=== PATIENT | male | born 1930 | race Caucasian/White ===

== ENCOUNTER 2019-01-21 07:49 | Observation (INO) | payer MEDICARE ==
[~2019-01-21] VITALS: Ht 170.2 cm; Wt 68.5 kg
[~2019-01-21 07:49] MED LIST: ASPI-515 PO; ATOR20TA PO; CARV12.52 PO; CARV6.2512 PO; DOXY100T PO; FINA5TAB4 PO; FURO-93 PO; GABA-826 PO; LEVO75TA5 PO; LISI5TAB7 PO; NAPR220C2 PO; PRAM0.25 PO; SODI1TAB PO; SPIR25TA PO; SPIR50TA4 PO; TAMS-11 PO; TEMA30CA PO
--- NOTE | 2019-01-21 08:05 | NUR ---
TERENCE MENDEZ, PER REPORT PT WITH FALL ONE MONTH AGO, BEEN HAVING RL BACK PAIN EVER SINCE. PT STATES THE PAIN GOT WORSE LAST NIGHT SO HE CALLED THE AMBULANCE. PT DIFFICULT TO OBTAIN INFO TO WHY HE IS HERE TODAY. PT STATES PAIN IS IN R LEG, THEN C/O L ANKLE PAIN AND SAYS HE IS HERE FOR HIS WOUND THAT HE GOT HERE AT THE HOSPITAL. ERPROVIDER IN TO EVAL PT, PT TO BP, CONT PULSE OX
[2019-01-21 08:41] LABS: BASOPHILS # (AUTO) 0.04 x10^3/uL (0-0.1); BASOPHILS % (AUTO) 1 % (0-1); EOSINOPHILS # (AUTO) 0.14 x10^3/uL (0-0.4); EOSINOPHILS % (AUTO) 2 % (1-7); LYMPHOCYTES # (AUTO) 0.99 x10^3/uL (1-3.4); LYMPHOCYTES % (AUTO) 14 % (22-44); MD NO; MEAN CORPUSCULAR HEMOGLOBIN 32.4 pg (27.5-34.5); MEAN CORPUSCULAR HGB CONC 32.3 g/dL (33.2-36.2); MEAN CORPUSCULAR VOLUME 100.2 fL (81-97); MEAN PLATELET VOLUME 6.2 fL (7.4-10.4); MONOCYTES # (AUTO) 0.44 x10^3/uL (0.2-0.8); MONOCYTES % (AUTO) 6 % (2-9); NEUTROPHILS # (AUTO) 5.44 x10^3/uL (1.8-6.8); NEUTROPHILS % (AUTO) 77 % (42-75); PLATELET COUNT 222 x10^3/uL (130-400); RED BLOOD COUNT 3.38 x10^6/uL (4.38-5.82); RED CELL DISTRIBUTION WIDTH 15.2 % (9.4-14.8)
[2019-01-21 08:44] LABS: HCT (SEDRATE) 33.9 % (39.2-51.8)
--- NOTE | 2019-01-21 08:47 | NUR ---
PT TO IMAGING
[2019-01-21 08:50] LABS: INTERNATIONAL NORMALIZED RATIO 1.18 (0.93-1.1); PROTHROMBIN TIME 12.3 Seconds (9.6-11.5)
--- NOTE | 2019-01-21 08:54 | NUR ---
MRI - per [email or web address], pacemaker was implanted on 12/24/18. Due to FDA regulations, unable to scan patient for 6 weeks after pacemaker implanted.
[2019-01-21 08:56] LABS: ALBUMIN 2.8 g/dL (3.4-5.0); ANION GAP 9 mmol/L (5-15); CALCIUM 8.1 mg/dL (8.5-10.1); CHLORIDE 102 mmol/L (98-107)
[2019-01-21 09:03] LABS: ALANINE AMINOTRANSFERASE 26 U/L (12-78); ALKALINE PHOSPHATASE 84 U/L (45-117); BILIRUBIN,TOTAL 0.9 mg/dL (0.2-1.0); CREATININE 0.98 mg/dL (0.7-1.3); TOTAL PROTEIN 5.6 g/dL (6.4-8.2)
[2019-01-21 09:12] LABS: TROPONIN I 0.177 ng/mL (0.000-0.045)
--- NOTE | 2019-01-21 09:14 | NUR ---
LAB CALLED TO REPORT ELEVATED TROP, PROVIDER UPDATED
--- NOTE | 2019-01-21 09:30 | NUR ---
PT BACK FROM IMAGING, UNABLE TO COMPLETE MRI PER TECH D/T PPM PLACEMENT <6WKS AGO. AWARE. EKG COMPLETED
--- NOTE | 2019-01-21 09:40 | NUR ---
PIV INITIATED, PT PLACED ON CARD MONITOR. UA COLLECTED AND WALKED TO LAB
--- NOTE | 2019-01-21 10:22 | NUR ---
PT TO CT
[2019-01-21 10:29] LABS: CULTURE INDICATED? YES; MICROSCOPIC INDICATED
--- NOTE | 2019-01-21 10:43 | NUR ---
BACK FROM IMAGING, PT ASKING FOR HIS DAUGHTER HE THOUGHT SHE WAS WITH HIM, REORIENTED PT, DAUGHTER HAS NOT BEEN PRESENT PT WAS BIB [facility] WITH NO FAMILY PRESENT
[2019-01-21] MEDS ORDERED: OMNIPAQUE 350 MG/ML, 150 ML BOTTLE ONE (10:53)
[2019-01-21] MEDS ORDERED: ONDANSETRON 2MG/ML, 2ML ONE (11:13)
[2019-01-21] MEDS ORDERED: MORPHINE SULFATE 4 MG/ML, 1ML ONE (11:13)
--- NOTE | 2019-01-21 11:18 | NUR ---
PT MEDICATED PER MAR FOR PAIN, PT VSS, NAD NOTED
[2019-01-21] MEDS ORDERED: morphine SULFATE 10 MG/ML, 1ML IVPush ONE (11:30)
[2019-01-21] MEDS ORDERED: ONDANSETRON 2MG/ML, 2ML IVPush ONE (11:30)
[2019-01-21] MEDS ORDERED: CEFTRIAXONE PMX 1GM/50ML 50 ML IV ONE (11:30)
--- NOTE | 2019-01-21 12:28 | NUR ---
PT RESTING ON GURNEY AT THIS TIME, NAD NOTED, DAUGHTER AT BEDSIDE. PT STATES HE HAS MINIMAL PAIN RELIEF FROM PAIN MEDICATION ADMINISTRATION, WILL NOTIFY
[2019-01-21] MEDS ORDERED: CEFTRIAXONE PMX 1GM/50ML 50 ML ONE (13:41)
--- NOTE | 2019-01-21 13:46 | NUR ---
REPORT GIVEN TO RECIEVING RN, PT GIVEN MED PER MAR, ADMITTING MD IN TO EVAL PT THEN PT TO TRANSFER TO [facility]
[2019-01-21 14:47] VITALS: BP 112/47
[2019-01-21] MEDS ORDERED: LABETALOL 5MG/ML, 20ML IVPush PRN (15:00)
[2019-01-21] MEDS ORDERED: ONDANSETRON ODT 4 MG PO PRN (15:00)
[2019-01-21] MEDS ORDERED: ACETAMINOPHEN 325 MG TABLET PO PRN (15:00)
[2019-01-21] MEDS ORDERED: TEMAZEPAM 15 MG CAPSULE PO PRN (15:00)
[2019-01-21] MEDS ORDERED: ENALAPRILAT 1.25 MG/ML, 2ML IVPush PRN (15:00)
[2019-01-21] MEDS ORDERED: HYDROcodone/APAP 5/325 TABLET PO PRN (15:00)
[2019-01-21] MEDS ORDERED: ONDANSETRON 2MG/ML, 2ML IVPush PRN (15:00)
[2019-01-21] MEDS: PRAMIPEXOLE 0.25MG TABLET PO SCH ×2 (16:47→19:56)
[2019-01-21 17:33] LABS: TROPONIN I 0.166 ng/mL (0.000-0.045)
[2019-01-21] MEDS: CARVEDILOL 6.25 MG TABLET PO SCH (18:05)
[2019-01-21] MEDS: FUROSEMIDE 20 MG/2 ML IV SCH (18:06)
[2019-01-21] MEDS: ENOXAPARIN 40 MG/0.4 ML SQ SCH (18:06)
[2019-01-21 18:35] VITALS: BP 105/54
[2019-01-21] MEDS: ATORVASTATIN 20 MG TABLET PO SCH (19:56)
[2019-01-21] MEDS: GABAPENTIN 100 MG CAPSULE PO SCH (19:56)
[2019-01-21 21:07] LABS: TROPONIN I 0.174 ng/mL (0.000-0.045)
[2019-01-22 01:10] VITALS: BP 94/52
[2019-01-22 04:51] LABS: BASOPHILS # (AUTO) 0.09 x10^3/uL (0-0.1); BASOPHILS % (AUTO) 1 % (0-1); EOSINOPHILS % (AUTO) 3 % (1-7); LYMPHOCYTES % (AUTO) 16 % (22-44); MD NO; MEAN CORPUSCULAR HEMOGLOBIN 33.4 pg (27.5-34.5); MEAN CORPUSCULAR HGB CONC 33.2 g/dL (33.2-36.2); MEAN CORPUSCULAR VOLUME 100.5 fL (81-97); MEAN PLATELET VOLUME 7.1 fL (7.4-10.4); MONOCYTES # (AUTO) 0.47 x10^3/uL (0.2-0.8); MONOCYTES % (AUTO) 7 % (2-9); NEUTROPHILS # (AUTO) 5.26 x10^3/uL (1.8-6.8); NEUTROPHILS % (AUTO) 74 % (42-75); PLATELET COUNT 212 x10^3/uL (130-400); RED BLOOD COUNT 3.06 x10^6/uL (4.38-5.82)
[2019-01-22 05:02] LABS: CHLORIDE 102 mmol/L (98-107)
[2019-01-22 05:08] LABS: ALANINE AMINOTRANSFERASE 22 U/L (12-78); ALBUMIN 2.5 g/dL (3.4-5.0); ALKALINE PHOSPHATASE 79 U/L (45-117); ANION GAP 5 mmol/L (5-15); BILIRUBIN,TOTAL 0.7 mg/dL (0.2-1.0); CALCIUM 8.1 mg/dL (8.5-10.1); CREATININE 1.08 mg/dL (0.7-1.3); TOTAL PROTEIN 5.2 g/dL (6.4-8.2)
[2019-01-22 06:27] VITALS: BP 101/65
[2019-01-22] MEDS: CARVEDILOL 6.25 MG TABLET PO SCH ×2 (06:28→17:00)
[2019-01-22] MEDS: LEVOTHYROXINE 75 MCG TABLET PO SCH (06:29)
[2019-01-22 07:48] VITALS: BP 103/54
[2019-01-22] MEDS: FUROSEMIDE 20 MG/2 ML IV SCH ×2 (07:51→16:59)
[2019-01-22] MEDS: TAMSULOSIN 0.4 MG CAP.ER.24H PO SCH (09:01)
[2019-01-22] MEDS: FINASTERIDE 5 MG TABLET PO SCH (09:01)
[2019-01-22] MEDS: ASPIRIN 81 MG TABLET EC PO SCH (09:01)
[2019-01-22] MEDS: PRAMIPEXOLE 0.25MG TABLET PO SCH ×3 (09:01→21:35)
[2019-01-22] MEDS: GABAPENTIN 100 MG CAPSULE PO SCH ×2 (09:02→21:35)
[2019-01-22] MEDS: DOXYCYCLINE 100MG TABLET PO SCH (09:02)
[2019-01-22] MEDS: SPIRONOLACTONE 25 MG TABLET PO SCH (09:02)
[2019-01-22] MEDS ORDERED: TRAZODONE 50MG TABLET PO PRN (11:00)
[2019-01-22] MEDS: METHOCARBAMOL 500 MG TABLET PO PRN (12:05)
[2019-01-22] MEDS: CEFTRIAXONE PMX 1GM/50ML 50 ML IV SCH (13:40)
[2019-01-22 13:46] VITALS: BP 102/57
[2019-01-22] MEDS: ENOXAPARIN 40 MG/0.4 ML SQ SCH (17:02)
[2019-01-22 21:09] VITALS: BP 110/60
[2019-01-22] MEDS: ATORVASTATIN 20 MG TABLET PO SCH (21:35)
[2019-01-23 01:10] VITALS: BP 108/65
[2019-01-23 05:02] LABS: BASOPHILS # (AUTO) 0.04 x10^3/uL (0-0.1); BASOPHILS % (AUTO) 1 % (0-1); EOSINOPHILS # (AUTO) 0.24 x10^3/uL (0-0.4); EOSINOPHILS % (AUTO) 3 % (1-7); LYMPHOCYTES # (AUTO) 1.21 x10^3/uL (1-3.4); LYMPHOCYTES % (AUTO) 17 % (22-44); MD NO; MEAN CORPUSCULAR HEMOGLOBIN 33.3 pg (27.5-34.5); MEAN CORPUSCULAR HGB CONC 33.1 g/dL (33.2-36.2); MEAN CORPUSCULAR VOLUME 100.6 fL (81-97); MEAN PLATELET VOLUME 6.9 fL (7.4-10.4); MONOCYTES # (AUTO) 0.43 x10^3/uL (0.2-0.8); MONOCYTES % (AUTO) 6 % (2-9); NEUTROPHILS # (AUTO) 5.27 x10^3/uL (1.8-6.8); NEUTROPHILS % (AUTO) 73 % (42-75); PLATELET COUNT 235 x10^3/uL (130-400); RED BLOOD COUNT 3.32 x10^6/uL (4.38-5.82); RED CELL DISTRIBUTION WIDTH 15.7 % (9.4-14.8)
[2019-01-23 05:15] LABS: ANION GAP 7 mmol/L (5-15); CALCIUM 7.9 mg/dL (8.5-10.1); CHLORIDE 97 mmol/L (98-107)
[2019-01-23 05:17] LABS: CREATININE 0.99 mg/dL (0.7-1.3)
[2019-01-23] MEDS: LEVOTHYROXINE 75 MCG TABLET PO SCH (06:01)
[2019-01-23] MEDS: CARVEDILOL 6.25 MG TABLET PO SCH ×2 (06:02→17:13)
[2019-01-23 06:55] VITALS: BP 133/73
[2019-01-23] MEDS: DOXYCYCLINE 100MG TABLET PO SCH (09:55)
[2019-01-23] MEDS: PRAMIPEXOLE 0.25MG TABLET PO SCH ×3 (09:55→20:47)
[2019-01-23] MEDS: TAMSULOSIN 0.4 MG CAP.ER.24H PO SCH (09:55)
[2019-01-23] MEDS: GABAPENTIN 100 MG CAPSULE PO SCH ×2 (09:55→20:47)
[2019-01-23] MEDS: SPIRONOLACTONE 25 MG TABLET PO SCH (09:55)
[2019-01-23] MEDS: FUROSEMIDE 20 MG/2 ML IV SCH (09:55)
[2019-01-23] MEDS: ASPIRIN 81 MG TABLET EC PO SCH (09:55)
[2019-01-23] MEDS: FINASTERIDE 5 MG TABLET PO SCH (10:00)
[2019-01-23] MEDS: CEFTRIAXONE PMX 1GM/50ML 50 ML IV SCH (13:50)
[2019-01-23 15:46] VITALS: BP 121/72
[2019-01-23] MEDS: ENOXAPARIN 40 MG/0.4 ML SQ SCH (17:13)
[2019-01-23 20:45] VITALS: BP 135/63
[2019-01-23] MEDS: ATORVASTATIN 20 MG TABLET PO SCH (20:47)
[2019-01-24 03:15] VITALS: BP 133/65
[2019-01-24 05:22] LABS: BASOPHILS # (AUTO) 0.02 x10^3/uL (0-0.1); BASOPHILS % (AUTO) 0 % (0-1); EOSINOPHILS # (AUTO) 0.19 x10^3/uL (0-0.4); EOSINOPHILS % (AUTO) 3 % (1-7); LYMPHOCYTES # (AUTO) 1.08 x10^3/uL (1-3.4); LYMPHOCYTES % (AUTO) 14 % (22-44); MD NO; MEAN CORPUSCULAR HEMOGLOBIN 32.6 pg (27.5-34.5); MEAN CORPUSCULAR HGB CONC 32.9 g/dL (33.2-36.2); MEAN PLATELET VOLUME 6.7 fL (7.4-10.4); MONOCYTES # (AUTO) 0.57 x10^3/uL (0.2-0.8); MONOCYTES % (AUTO) 8 % (2-9); NEUTROPHILS # (AUTO) 5.81 x10^3/uL (1.8-6.8); NEUTROPHILS % (AUTO) 76 % (42-75); PLATELET COUNT 238 x10^3/uL (130-400); RED BLOOD COUNT 3.33 x10^6/uL (4.38-5.82); RED CELL DISTRIBUTION WIDTH 15.3 % (9.4-14.8)
[2019-01-24 05:34] LABS: ANION GAP 6 mmol/L (5-15); CHLORIDE 97 mmol/L (98-107); CREATININE 0.93 mg/dL (0.7-1.3)
[2019-01-24] MEDS: LEVOTHYROXINE 75 MCG TABLET PO SCH (06:18)
[2019-01-24] MEDS: CARVEDILOL 6.25 MG TABLET PO SCH ×2 (06:19→17:15)
[2019-01-24 08:05] VITALS: BP 131/75
[2019-01-24] MEDS: GABAPENTIN 100 MG CAPSULE PO SCH ×2 (08:57→20:25)
[2019-01-24] MEDS: ASPIRIN 81 MG TABLET EC PO SCH (08:57)
[2019-01-24] MEDS: FUROSEMIDE 20 MG/2 ML IV SCH (08:57)
[2019-01-24] MEDS: FINASTERIDE 5 MG TABLET PO SCH (08:57)
[2019-01-24] MEDS: DOXYCYCLINE 100MG TABLET PO SCH (08:57)
[2019-01-24] MEDS: PRAMIPEXOLE 0.25MG TABLET PO SCH ×3 (08:57→20:25)
[2019-01-24] MEDS: SPIRONOLACTONE 25 MG TABLET PO SCH (08:57)
[2019-01-24] MEDS: TAMSULOSIN 0.4 MG CAP.ER.24H PO SCH (08:57)
[2019-01-24 13:40] VITALS: BP 118/67
[2019-01-24] MEDS: CEFTRIAXONE PMX 1GM/50ML 50 ML IV SCH (13:52)
[2019-01-24] MEDS: METHOCARBAMOL 500 MG TABLET PO PRN (13:56)
[2019-01-24] MEDS: ENOXAPARIN 40 MG/0.4 ML SQ SCH (17:15)
[2019-01-24 19:41] VITALS: BP 113/61
[2019-01-24] MEDS: ATORVASTATIN 20 MG TABLET PO SCH (20:25)
[2019-01-25 00:53] VITALS: BP 122/70
[2019-01-25 05:26] LABS: CHLORIDE 93 mmol/L (98-107)
[2019-01-25 05:32] LABS: ANION GAP 6 mmol/L (5-15); CREATININE 0.84 mg/dL (0.7-1.3)
[2019-01-25] MEDS: LEVOTHYROXINE 75 MCG TABLET PO SCH (06:17)
[2019-01-25] MEDS: CARVEDILOL 6.25 MG TABLET PO SCH ×2 (06:17→17:42)
[2019-01-25 07:58] VITALS: BP 133/79
[2019-01-25 08:09] LABS: ANION GAP 7 mmol/L (5-15); CALCIUM 7.9 mg/dL (8.5-10.1); CHLORIDE 92 mmol/L (98-107)
[2019-01-25] MEDS: FUROSEMIDE 20 MG/2 ML IV SCH (09:50)
[2019-01-25] MEDS: ASPIRIN 81 MG TABLET EC PO SCH (09:52)
[2019-01-25] MEDS: PRAMIPEXOLE 0.25MG TABLET PO SCH ×3 (09:52→21:19)
[2019-01-25] MEDS: GABAPENTIN 100 MG CAPSULE PO SCH ×2 (09:52→21:19)
[2019-01-25] MEDS: DOXYCYCLINE 100MG TABLET PO SCH (09:52)
[2019-01-25] MEDS: SPIRONOLACTONE 25 MG TABLET PO SCH (09:52)
[2019-01-25] MEDS: SODIUM CHLORIDE 1 GM TABLET PO SCH ×3 (09:52→21:19)
[2019-01-25] MEDS: TAMSULOSIN 0.4 MG CAP.ER.24H PO SCH (09:52)
[2019-01-25] MEDS: FINASTERIDE 5 MG TABLET PO SCH (10:03)
[2019-01-25] MEDS ORDERED: BISACODYL 10 MG SUPP PR PRN (12:30)
[2019-01-25] MEDS ORDERED: DOCUSATE 50 MG/5 ML, 10ML UDC PO PRN (12:30)
[2019-01-25] MEDS ORDERED: POLYETHYLENE GLYCOL 17 GM PACKET PO PRN (12:30)
[2019-01-25] MEDS: CEFTRIAXONE PMX 1GM/50ML 50 ML IV SCH (12:59)
[2019-01-25] MEDS ORDERED: DOCUSATE 100 MG CAPSULE PO PRN (13:30)
[2019-01-25 14:05] VITALS: BP 93/57
[2019-01-25] MEDS ORDERED: FLU VACC QS2019-20 36MOS UP/PF 0.5 ML IM-VACC ONE (16:00)
[2019-01-25] MEDS: ENOXAPARIN 40 MG/0.4 ML SQ SCH (16:41)
[2019-01-25 16:43] VITALS: BP 110/65
[2019-01-25 19:06] VITALS: BP 105/65
[2019-01-25] MEDS: ATORVASTATIN 20 MG TABLET PO SCH (21:19)
[2019-01-26 00:54] VITALS: BP 113/62
[2019-01-26] MEDS: SODIUM CHLORIDE 1 GM TABLET PO SCH ×2 (05:18→10:06)
[2019-01-26] MEDS: LEVOTHYROXINE 75 MCG TABLET PO SCH (05:18)
[2019-01-26] MEDS: CARVEDILOL 6.25 MG TABLET PO SCH (05:19)
[2019-01-26 07:09] VITALS: BP 106/57
[2019-01-26] MEDS ORDERED: LISINOPRIL 5 MG TABLET PO SCH (09:00)
[2019-01-26 09:37] LABS: ANION GAP 8 mmol/L (5-15); CALCIUM 8.3 mg/dL (8.5-10.1); CHLORIDE 92 mmol/L (98-107); CREATININE 1.05 mg/dL (0.7-1.3)
[2019-01-26] MEDS: FINASTERIDE 5 MG TABLET PO SCH (10:06)
[2019-01-26] MEDS: SPIRONOLACTONE 25 MG TABLET PO SCH (10:06)
[2019-01-26] MEDS: ASPIRIN 81 MG TABLET EC PO SCH (10:06)
[2019-01-26] MEDS: GABAPENTIN 100 MG CAPSULE PO SCH (10:06)
[2019-01-26] MEDS: TAMSULOSIN 0.4 MG CAP.ER.24H PO SCH (10:06)
[2019-01-26] MEDS: PRAMIPEXOLE 0.25MG TABLET PO SCH (10:06)
[2019-01-26] MEDS: DOXYCYCLINE 100MG TABLET PO SCH (10:06)
[2019-01-26] MEDS ORDERED: TRAM50TA2 PO (12:41)
[2019-01-26] MEDS ORDERED: ACET325T26 PO (12:41)
[2019-01-26] MEDS ORDERED: DOCU-131 PO (12:41)
[2019-01-26] MEDS ORDERED: ONDA4TAB13 PO (12:41)
[2019-01-26] MEDS ORDERED: CEFT1VIA13 IA (12:41)
[2019-01-26] MEDS ORDERED: METH500T7 PO (12:41)
[2019-01-26] MEDS ORDERED: POLY17PO5 PO (12:41)
[2019-01-26 13:05] VITALS: BP 113/63
[2019-01-26] MEDS: CEFTRIAXONE PMX 1GM/50ML 50 ML IV SCH (13:05)
== END 2019-01-26 14:06 ==
LOC: ED 08:27 → INTOOBSV 12:08 → EDIP 12:08 → 5SO 14:21
PROVIDERS: ADMIT Internal Medicine; ATTEND Internal Medicine
DX: R53.1 Weakness (principal); E22.2 Syndrome of inappropriate secretion of antidiuretic hormone; I50.43 Acute on chronic combined systolic (congestive) and diastolic (congestive) heart failure; E43 Unspecified severe protein-calorie malnutrition; N39.0 Urinary tract infection, site not specified; I11.0 Hypertensive heart disease with heart failure; L89.629 Pressure ulcer of left heel, unspecified stage; D75.89 Other specified diseases of blood and blood-forming organs; E03.9 Hypothyroidism, unspecified; E78.5 Hyperlipidemia, unspecified; G62.9 Polyneuropathy, unspecified; I25.10 Atherosclerotic heart disease of native coronary artery without angina pectoris; I25.2 Old myocardial infarction; I25.5 Ischemic cardiomyopathy; I48.91 Unspecified atrial fibrillation; M16.11 Unilateral primary osteoarthritis, right hip; G89.29 Other chronic pain; M51.36 Other intervertebral disc degeneration, lumbar region; R32 Unspecified urinary incontinence; R62.7 Adult failure to thrive; R19.7 Diarrhea, unspecified; R15.9 Full incontinence of feces; Z66 Do not resuscitate; Z87.891 Personal history of nicotine dependence; Z95.0 Presence of cardiac pacemaker; Z79.82 Long term (current) use of aspirin; Z79.899 Other long term (current) drug therapy; Z23 Encounter for immunization
CPT/HCPCS: 36415; 71045; 72100; 72132; 73502; 73630; 73701; 80048; 80053; 81001; 82607; 83735; 83880; 84100; 84145; 84436; 84443; 84484; 85025; 85610; 85651; 86140; 87040; 87077; 87086; 87186; 90471; 90686; 93005; 96365; 96366; 96372; 96375; 96376; 97162; 97166; 99285; G0378; J0696; J1650; J1940; J2270; J2405; Q9967